=== PATIENT | female | born 2000 | race Caucasian/White ===

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

== ENCOUNTER 2022-03-27 17:57 | Emergency (ER) | payer OTHER ==
[2022-03-27] MEDS ORDERED: Acetaminophen 325 MG TAB ONE (18:09)
== END 2022-03-27 19:24 | disposition home or self-care (01) ==
LOC: CSHERS 17:57
DX: B34.9 Viral infection, unspecified (principal)
CPT/HCPCS: 87081; 87430; 87804; 99284